=== PATIENT | male | born 1980 | race Two or more races ===

== ENCOUNTER → 2023-03-02 | Emergency (ER) | payer BC ==
[~2023-03-02] VITALS: Ht 170.2 cm; Wt 136.1 kg
== END | disposition home or self-care (01) ==
LOC: ER 13:37
DX: S63.257A Unspecified dislocation of left little finger, initial encounter (principal); W22.8XXA Striking against or struck by other objects, initial encounter; Y93.89 Activity, other specified; Y92.89 Other specified places as the place of occurrence of the external cause
CPT/HCPCS: 26700; 96372; 99284; J1885